=== PATIENT | female | born 1950 | race Caucasian/White ===

== ENCOUNTER → 2019-03-22 | Outpatient (CLI) | payer MEDICARE, OTHER ==
[~2019-03-22] MED LIST: ALBU90OI6 INH; AMLO5 PO; Advair Hfa 115-12 GM INH; LOSARTAN-HCTZ1 EAC2 PO; NAPR500 PO; PRAZ1; Synthroid112 MCG PO; TIOT18 INH; VENL37.5 PO
== END | disposition home or self-care (01) ==
LOC: LAB 15:09 → LAB SHORT 15:09
DX: R30.0 Dysuria (principal); R35.0 Frequency of micturition
CPT/HCPCS: 87077; 87086; 87186

== ENCOUNTER 2022-09-23 08:37 | Day surgery (SDC) | payer MEDICARE, OTHER ==
[~2022-09-23] VITALS: Ht 157.5 cm; Wt 74.7 kg
[2022-09-23] MEDS ORDERED: PANT40 (09:25)
[2022-09-23] MEDS ORDERED: VITAMIN D310 MC4 (09:25)
[2022-09-23] MEDS ORDERED: GLUCHON (09:25)
[2022-09-23] MEDS ORDERED: MONT10T (09:25)
[2022-09-23 11:14] VITALS: BP 121/73
== END 2022-09-23 11:10 | disposition home or self-care (01) ==
LOC: ORSCSDS 08:37
PROVIDERS: Surgery
PROC: 0DBH8ZX Excision of Cecum, Via Natural or Artificial Opening Endoscopic, Diagnostic (ICD-10-PCS; principal; 2022-09-23 09:45)
DX: Z12.11 Encounter for screening for malignant neoplasm of colon (principal); Z86.010 Personal history of colon polyps; D12.0 Benign neoplasm of cecum; K57.30 Diverticulosis of large intestine without perforation or abscess without bleeding; F41.9 Anxiety disorder, unspecified; J45.909 Unspecified asthma, uncomplicated; K21.9 Gastro-esophageal reflux disease without esophagitis; E05.00 Thyrotoxicosis with diffuse goiter without thyrotoxic crisis or storm; I10 Essential (primary) hypertension; E03.9 Hypothyroidism, unspecified; Z79.899 Other long term (current) drug therapy
CPT/HCPCS: 88305; J2704; J7120

== ENCOUNTER → 2023-01-23 | Outpatient (CLI) | payer MEDICARE, OTHER ==
[~2023-01-23] MED LIST changes: +GLUCHON; +MONT10T; +PANT40; +VITAMIN D310 MC4
== END | disposition home or self-care (01) ==
LOC: LAB 16:19 → LAB SHORT 16:19
DX: N39.0 Urinary tract infection, site not specified (principal)
CPT/HCPCS: 87077; 87086; 87186

== ENCOUNTER → 2023-02-17 | Outpatient (CLI) | payer MEDICARE, OTHER ==
[2023-02-18 12:23] LABS: Influenza A, PCR NEGATIVE (NEGATIVE); Influenza B, PCR NEGATIVE (NEGATIVE); Resp Syncytial Virus, PCR NEGATIVE (NEGATIVE); SARS-Cov-2 (COVID-19) PCR, MMC NEGATIVE (NEGATIVE)
== END | disposition home or self-care (01) ==
LOC: LAB 15:31 → LAB SHORT 15:31
PROVIDERS: Family Medicine
DX: R05.9 Cough, unspecified (principal); R50.9 Fever, unspecified
CPT/HCPCS: 0241U

== ENCOUNTER → 2023-06-01 | Outpatient (CLI) | payer MEDICARE, OTHER ==
[~2023-06-01] MED LIST changes: +ADVAIR HFA 230-28 GM INH; +Estrace Vagin42.5 GM VAG; +FLUTICASONE PRO12 G1 INH; +Flonase 0.05% N16 GM; +GLUCHON PO; +LEVOTHYROXINE88 MC9 PO; +LOSARTAN POTAS100 M1 PO; +LOSARTAN-HCTZ1 EAC6 PO; +MONT10T PO; +PANTOPRAZOLE SO40 M2 PO; +PROAIR DIGIHAL90 MCG INH; +SPIR50 PO; +VENL150ER PO; +VITAMIN D310 MC4 PO; +VITAMIN D31000 UNI1 PO; +Ventolin/Prove6.7 GM INH
== END | disposition home or self-care (01) ==
LOC: LAB SHORT 11:18 → LAB 11:18
DX: D48.5 Neoplasm of uncertain behavior of skin (principal)
CPT/HCPCS: 88305